=== PATIENT | female | born 1970 | race Caucasian/White ===

== ENCOUNTER → 2017-06-19 | Outpatient (CLI) | payer BC | LOC: CIMAGING 15:00 | DX: Z12.31 Encounter for screening mammogram for malignant neoplasm of breast (principal) | CPT/HCPCS: G0202 ==

== ENCOUNTER → 2018-07-15 | Outpatient (CLI) | payer BC | LOC: CIMAGING 12:19 | DX: Z12.31 Encounter for screening mammogram for malignant neoplasm of breast (principal) ==